=== PATIENT | female | born 1965 | race Caucasian/White ===

== ENCOUNTER 2018-10-18 12:35 | Inpatient (IN) | payer MEDICAID ==
[~2018-10-18] VITALS: Ht 152.4 cm; Wt 103.0 kg
[~2018-10-18 12:35] MED LIST: HYDR12.5 PO; METO50TA PO; OMEP20TC12 PO
[2018-10-18 12:43] VITALS: BP 146/108
--- NOTE | 2018-10-18 13:03 | NUR ---
BARB EMT AT BEDSIDE FOR EKG
--- NOTE | 2018-10-18 13:17 | NUR ---
53 Y FEMALE BIB FAMILY C/O CHEST HEAVYNESS, LT ARM NUMBNESS, L SIDED FACIAL NUMBNESS, WEAKNESS AND DIZZYNESS SINCE LAST NIGHT. DENIES PAIN AT THIS TIME. DENIES BLURRY VISION. -N/V OR FEVER. PT ALERT AND AWAKE. VSS AT THIS TIME. BED IS DOWN, LOCKED, BED RAIL X 1, ERMD TO SEE PT. MEDHX:HTN RX:ASPIRIN, MOTOPROLOL, HYDROCHLOROTHIAZIDE
--- NOTE | 2018-10-18 13:55 | NUR ---
dr bateman at bedside for pt evaluation
[2018-10-18] MEDS ORDERED: KETOROLAC 30 MG/ML VIAL IVP ONE (14:00)
[2018-10-18] MEDS ORDERED: ASPIRIN 81 MG TAB.CHEW PO ONE (14:00)
[2018-10-18 14:17] LABS: BASOPHILS % (AUTO) 0.4 % (0.0-2.0); EOSINOPHILS # (AUTO) 0.1 K/uL (0-0.4); EOSINOPHILS % (AUTO) 0.8 % (0.0-4.0); HEMATOCRIT 41.3 % (36-48); HEMOGLOBIN 14.1 g/dL (12.0-16.0); LYMPHOCYTES # (AUTO) 2.7 K/uL (2.5-16.5); LYMPHOCYTES % (AUTO) 32.5 % (20.5-51.1); MEAN CORPUSCULAR HEMOGLOBIN 31 pg (27-31); MEAN CORPUSCULAR HGB CONC 34 g/dL (33-37); MEAN CORPUSCULAR VOLUME 91.4 fL (80-94); MONOCYTES # (AUTO) 0.5 K/uL (0.8-1.0); MONOCYTES % (AUTO) 6.1 % (1.7-9.3); NEUTROPHILS # (AUTO) 5.1 K/uL (1.8-7.7); NEUTROPHILS % (AUTO) 60.2 % (42.2-75.2); PLATELET COUNT (AUTO) 249 K/uL (140-450); RED BLOOD CELL COUNT(AUTO) 4.52 MIL/uL (4.20-5.40); RED CELL DISTRIBUTION WIDTH 12.8 % (11.6-13.7); WHITE BLOOD COUNT (AUTO) 8.4 K/uL (4.8-10.8)
--- NOTE | 2018-10-18 14:23 | NUR ---
ASPIRIN NON ADMINISTERED, STATES SHE TOOK ASPIRIN BEFORE COMING INTO ER
--- NOTE | 2018-10-18 14:36 | NUR ---
PAIN 0/10. AFTER TORADOL ADMINISTERED
[2018-10-18 14:37] LABS: PROTHROMBIN TIME 9.6 secs (10.8-13.4)
[2018-10-18 14:38] LABS: ALBUMIN 3.6 g/dL (3.4-5.0); ANION GAP 10.8 (8-16); CREATININE 0.8 mg/dL (0.6-1.3); POTASSIUM 3.8 mmol/L (3.5-5.1); TOTAL BILIRUBIN 0.5 mg/dL (0.0-1.0)
[2018-10-18 15:03] LABS: D-DIMER < 100 ng/ml (0-400)
--- NOTE | 2018-10-18 15:34 | NUR ---
VSS AT THIS TIME, PT [id number]. PT SITTING IN BED.
[2018-10-18] MEDS ORDERED: DOCUSATE SODIUM 100 MG GELCAP PO PRN (16:00)
[2018-10-18] MEDS ORDERED: ONDANSETRON 4 MG/2 ML VIAL IM/IVP PRN (16:00)
[2018-10-18] MEDS ORDERED: ACETAMINOPHEN 325 MG TAB PO PRN (16:00)
[2018-10-18] MEDS ORDERED: NITROGLYCERIN 0.4 MG TAB SL ONE (16:10)
[2018-10-18] MEDS ORDERED: NITROGLYCERIN 0.4 MG TAB SL PRN (16:20)
[2018-10-18 16:30] VITALS: BP 150/99
--- NOTE | 2018-10-18 16:30 | NUR ---
RECEIVED PT FROM ER NURSE, RAMAKRISHNA, VIA CHELO, PT IS AWAKE, ALERT AND ORIENTED, SURINAMESE SPEAKING AND AMBULATES. PT HAS AN IV LINE ON THE RT AC G. 20 ON SALINE LOCK. PT DENIES SOB AND VERBALIZED A PAIN RATE OF 3/10, TOLERABLE. NO OTHER UNTOWARD SYMPTOM NOTED. WILL CONTINUE TO MONITOR PT.
--- NOTE | 2018-10-18 16:30 | NUR ---
Patient will be admitted to care of [facility]. Admited to tele. Will go to room 125b. Belongings list completed. Report to lizette whiting.
[2018-10-18 16:33] LABS: CHOL/HDL RATIO 4.7 (1-4.5); PHOSPHORUS 2.8 mg/dL (2.5-4.9); THYROID STIMULATING HORMONE 2.26 uIU/mL (0.34-3.74)
[2018-10-18] MEDS ORDERED: ASPI-1718 PO (16:41)
[2018-10-18] MEDS: NACL 0.9% 1,000 ML IV SCH (17:00)
--- NOTE | 2018-10-18 17:00 | NUR ---
PT WAS STARTED ON IVF OF NS AT 100ML/HR.
[2018-10-18] MEDS ORDERED: METOPROLOL 50 MG TAB PO SCH (17:11)
--- NOTE | 2018-10-18 17:32 | NUR ---
PT IS AWAKE AND LYING ON THE BED, VITAL SIGNS TAKEN, BP IS 140/88, PULSE IS 66 O2 SATURATION IS 97%, RESPIRATION IS 18/MIN, ORAL MEDICATION WAS GIVEN AND PT TOLERATED IT. NO SIGN OF DISTRESS NOTED. WILL MONITOR PT.
--- NOTE | 2018-10-18 18:10 | NUR ---
PT IS OFF THE UNIT FOR A CT OF HEAD WITHOUT CONTRAST.
--- NOTE | 2018-10-18 18:21 | NUR ---
PT IS BACK TO ROOM NOW FROM CT OF HEAD WITHOUT CONTRAST, FAMILY ON THE BEDSIDE, ASSISTED WITH DINNER TRAY.
--- NOTE | 2018-10-18 19:10 | NUR ---
ENDORSED PT TO NUCLEAR OPERATIONS SPECIALIST NURSELEVAR FOR CONTINUITY OF CARE. PT IS STABLE AT THIS TIME WITH FAMILY ON THE BEDSIDE.
--- NOTE | 2018-10-18 19:17 | NUR ---
RECEIVED BEDSIDE REPORT FROM DAY SHIFT RN. PATIENT STABLE WITH NO SIGNS OF DISTRESS, SAFETY PRECAUTIONS IN PLACE, FAMILY AT BEDSIDE.
[2018-10-18 20:00] VITALS: BP 115/67
--- NOTE | 2018-10-18 20:59 | NUR ---
ADMINISTERED SCHEDULED MEDICATIONS, NO C/O PAIN AT THIS TIME, NO SIGNS OF DISTRESS ON RA. WILL CONTINUE TO MONITOR.
--- NOTE | 2018-10-18 23:00 | NUR ---
PATIENT SLEEPING IN BED, NO SIGNS OF DISTRESS ON RA. SAFETY PRECAUTIONS IN PLACE.
[2018-10-19] VITALS: BP 127/78
--- NOTE | 2018-10-19 00:45 | NUR ---
VITAL SIGNS STABLE, NO C/O PAIN, NO SIGNS OF DISTRESS ON RA.
--- NOTE | 2018-10-19 02:24 | NUR ---
PATIENT SLEEPING, NO SIGNS OF DISTRESS ON RA, WILL CONTINUE TO MONITOR.
[2018-10-19 04:00] VITALS: BP_SYST 133; BP_SYST 135; BP_DIAS 81; BP_DIAS 88
[2018-10-19] MEDS: NACL 0.9% 1,000 ML IV SCH ×3 (04:12→23:45)
--- NOTE | 2018-10-19 04:30 | NUR ---
PATIENT SLEEPING VITAL SIGNS STABLE. NO SIGNS OF DISTRESS ON RA.
--- NOTE | 2018-10-19 06:18 | NUR ---
PATIENT SLEEPING, NO SIGNS OF DISTRESS ON RA, SAFETY PRECAUTIONS IN PLACE.
--- NOTE | 2018-10-19 07:32 | NUR ---
ENDORSED PATIENT TO DAY SHIFT RN IN STABLE CONDITION.
--- NOTE | 2018-10-19 07:33 | NUR ---
Received bedside report from pm nurse Bridgette. Pt asleep in bed, respirations even & nonlabored, FLACC 0. Right AC IV intact with ongoing NS @ 100ml/hr. Call light within reach.
[2018-10-19 08:00] VITALS: BP 138/83
[2018-10-19] MEDS: ASPIRIN 81 MG TAB.CHEW PO SCH (08:09)
[2018-10-19] MEDS: ATORVASTATIN 20 MG TAB PO SCH (08:10)
[2018-10-19] MEDS: METOPROLOL 50 MG TAB PO SCH (08:11)
[2018-10-19] MEDS: HYDROCHLOROTHIAZIDE 25 MG TAB PO SCH (08:12)
--- NOTE | 2018-10-19 08:30 | NUR ---
Pt sitting up in bed, eating breakfast. No c/o pain. Cont to have slight numbness to left side of face, no facial droop, able to smile symmetrically, no lingual deviation. Pt denies any chest pain or left arm numbness at this time. Call light within reach. Will cont to monitor.
--- NOTE | 2018-10-19 08:39 | NUR ---
PATIENT HAS BEEN SCREENED AND CATEGORIZED HIGH NUTRITION RISK. PATIENT WILL BE SEEN WITHIN 1-2 DAYS OF ADMISSION. 10/19/18-10/20/[address]
[2018-10-19 09:19] LABS: BASOPHILS % (AUTO) 0.4 % (0.0-2.0); EOSINOPHILS # (AUTO) 0.1 K/uL (0-0.4); EOSINOPHILS % (AUTO) 1.1 % (0.0-4.0); HEMATOCRIT 41.2 % (36-48); HEMOGLOBIN 14.2 g/dL (12.0-16.0); LYMPHOCYTES # (AUTO) 2.2 K/uL (2.5-16.5); LYMPHOCYTES % (AUTO) 29.9 % (20.5-51.1); MEAN CORPUSCULAR HEMOGLOBIN 32 pg (27-31); MEAN CORPUSCULAR HGB CONC 35 g/dL (33-37); MEAN CORPUSCULAR VOLUME 91.6 fL (80-94); MONOCYTES # (AUTO) 0.5 K/uL (0.8-1.0); MONOCYTES % (AUTO) 6.2 % (1.7-9.3); NEUTROPHILS # (AUTO) 4.6 K/uL (1.8-7.7); NEUTROPHILS % (AUTO) 62.4 % (42.2-75.2); PLATELET COUNT (AUTO) 231 K/uL (140-450); RED BLOOD CELL COUNT(AUTO) 4.49 MIL/uL (4.20-5.40); RED CELL DISTRIBUTION WIDTH 12.6 % (11.6-13.7); WHITE BLOOD COUNT (AUTO) 7.3 K/uL (4.8-10.8)
[2018-10-19 09:41] LABS: ANION GAP 11.5 (8-16); CARBON DIOXIDE 25.5 mmol/L (21-32); CREATININE 0.7 mg/dL (0.6-1.3)
[2018-10-19 12:00] VITALS: BP 122/75
--- NOTE | 2018-10-19 13:58 | NUR ---
10/19/18 RD INITIAL ASSESSMENT COMPLETED PLEASE REFER TO NUTRITION ASSESSMENT UNDER CARE ACTIVITY FOR ESTIMATED NUTRITIONAL NEEDS. RD RECOMMENDATIONS: 1. CONTINUE CARDIAC DIET TOLERATED. 2. PT DECLINED VERBAL NUTRITION EDUCATION ON CARDIAC DIET, HOWEVER ACCEPTED LOW NA DIET EDUCATION HANDOUT. 3. RD WILL F/U 7 DAYS; LOW RISK. PINEDA MATA, LOREN
--- NOTE | 2018-10-19 14:10 | NUR ---
Pt amb back to bed from toilet room. Pt with steady gait, AAOx4. No c/o pain/discomfort. Right AC IV intact with ongoing NS @ 100ml/hr. Call light within reach.
[2018-10-19 16:00] VITALS: BP 115/68
--- NOTE | 2018-10-19 18:13 | NUR ---
Pt sitting up in bed eating dinner. No c/o discomfort, no signs of distress. Call light within reach. Right AC IV intact with ongoing NS @ 100ml/hr.
--- NOTE | 2018-10-19 19:20 | NUR ---
Report given to pm nurse Bridgette. Pt in bed, awake, no signs of distress. Right AC IV intact with ongoing NS @ 100ml/hr. Call light within reach.
--- NOTE | 2018-10-19 19:21 | NUR ---
RECEIVED BEDSIDE REPORT FROM DAY SHIFT RNWILLIAM. PATIENT IS STABLE WITH NO SIGNS OF DISTRESS ON RA. NO C/O PAIN. SAFETY PRECAUTIONS IN PLACE.
[2018-10-19 20:00] VITALS: BP 127/76
--- NOTE | 2018-10-19 20:34 | NUR ---
ADMINISTERED SCHEDULED MEDICATION, PATIENT TOLERATED WELL. PATIENT RESTING IN BED, NO SIGNS OF DISTRESS OR C/O PAIN.
--- NOTE | 2018-10-19 22:15 | NUR ---
PATIENT RESTING IN BED, NO C/O PAIN OR DISCOMFORT. EDUCATE PATIENT ON NEED FOR URINE SAMPLE. PATIENT AGREED TO CALL ME WHEN THE NEED TO VOID ARISES.
[2018-10-19 23:02] LABS: APPEARANCE,URINE CLEAR (CLEAR); BILIRUBIN,URINE NEGATIVE (NEGATIVE); BLOOD, URINE NEGATIVE (NEGATIVE); COLOR,URINE YELLOW (YELLOW); LEUKOCYTE ESTERASE ,URINE NEGATIVE (NEGATIVE); NITRITE, URINE NEGATIVE (NEGATIVE); PH,URINE 6.5 (5.0-9.0); UGLUCOSE NEGATIVE (NEGATIVE)
[2018-10-19 23:09] LABS: BARBITURATE, URINE NEG. ng/ml (NEG <=200); BENZODIAZEPINE, URINE NEG. ng/mL (NEG <=200); CANNABINOID, URINE NEG. ng/mL (NEG <=50); COCAINE, URINE NEG. ng/mL (NEG <=300); OPIATE, URINE NEG. ng/mL (NEG <=2000); PHENCYCLIDINE SCREEN,URINE NEG. ng/mL (NEG <=25)
[2018-10-20 00:22] VITALS: BP 143/84
--- NOTE | 2018-10-20 00:33 | NUR ---
PATIENT SLEEPING, VITALS STABLE, NO SIGNS OF DISTRESS ON RA. SAFETY PRECAUTIONS IN PLACE.
--- NOTE | 2018-10-20 02:03 | NUR ---
PATIENT IS SLEEPING. NO SIGNS OF DISTRESS ON RA. SAFETY PRECAUTIONS IN PLACE.
[2018-10-20 04:00] VITALS: BP 147/75
--- NOTE | 2018-10-20 04:10 | NUR ---
PATIENT SLEEPING, VITALS STABLE, NO SIGNS OF DISTRESS ON RA.
[2018-10-20 06:30] LABS: BASOPHILS % (AUTO) 0.4 % (0.0-2.0); EOSINOPHILS # (AUTO) 0.1 K/uL (0-0.4); EOSINOPHILS % (AUTO) 1.1 % (0.0-4.0); HEMATOCRIT 38.6 % (36-48); HEMOGLOBIN 13.4 g/dL (12.0-16.0); LYMPHOCYTES # (AUTO) 3.1 K/uL (2.5-16.5); LYMPHOCYTES % (AUTO) 34.1 % (20.5-51.1); MEAN CORPUSCULAR HEMOGLOBIN 32 pg (27-31); MEAN CORPUSCULAR HGB CONC 35 g/dL (33-37); MEAN CORPUSCULAR VOLUME 91.6 fL (80-94); MONOCYTES # (AUTO) 0.6 K/uL (0.8-1.0); MONOCYTES % (AUTO) 6.5 % (1.7-9.3); NEUTROPHILS # (AUTO) 5.3 K/uL (1.8-7.7); NEUTROPHILS % (AUTO) 57.9 % (42.2-75.2); PLATELET COUNT (AUTO) 228 K/uL (140-450); RED BLOOD CELL COUNT(AUTO) 4.21 MIL/uL (4.20-5.40); RED CELL DISTRIBUTION WIDTH 12.7 % (11.6-13.7); WHITE BLOOD COUNT (AUTO) 9.2 K/uL (4.8-10.8)
[2018-10-20 06:31] LABS: ANION GAP 9.6 (8-16); CARBON DIOXIDE 29.2 mmol/L (21-32); CREATININE 0.8 mg/dL (0.6-1.3); POTASSIUM 3.8 mmol/L (3.5-5.1)
[2018-10-20 06:36] LABS: MAGNESIUM 1.8 mg/dL (1.8-2.4); PHOSPHORUS 2.9 mg/dL (2.5-4.9)
--- NOTE | 2018-10-20 06:43 | NUR ---
PATIENT SLEEPING, WILL ENDORSE TO DAY SHIFT IN STABLE CONDITION.
--- NOTE | 2018-10-20 07:20 | NUR ---
RECEIVED BEDSIDE SHIFT REPORT FROM NURSE. PT CURRENTLY RESTING IN BED WITH NO OBVIOUS SIGNS OF DISTRESS WITH BREATHING EQUAL AND UNLABORED. AOX4, WITH NO COMPLAINTS OR REQUESTS AT THIS TIME. PT CURRENTLY HAS A RIGHT AC IV PATENT AND ASYMPTOMATIC INFUSING NS@100ML/HR. ALL SAFETY MEASURES IN PLACE AND CALL LIGHT WITHIN REACH. PT DENIES ANY NUMBNESS TO FACE.
[2018-10-20 08:00] VITALS: BP 140/81
[2018-10-20] MEDS: ASPIRIN 81 MG TAB.CHEW PO SCH (08:18)
[2018-10-20] MEDS: ATORVASTATIN 20 MG TAB PO SCH (08:18)
[2018-10-20] MEDS: METOPROLOL 50 MG TAB PO SCH (08:18)
--- NOTE | 2018-10-20 08:30 | NUR ---
ADMINISTERED MEDICATIONS, PT TOLERATED WELL. REVIEWED INDICATION AND SIDE EFFECTS. PT HAS NO OBVIOUS SIGNS OF DISTRESS, BREATHING SYMMETRICAL AND UNLABORED.
[2018-10-20] MEDS: HYDROCHLOROTHIAZIDE 25 MG TAB PO SCH (08:40)
--- NOTE | 2018-10-20 09:35 | NUR ---
PROVIDED WRITTEN AND VERBAL DISCHARGE INFORMATION. PT IS GOING TO PHONE DAUGHTER FOR TRANSPORTATION HOME. IV REMOVED WITH TIP OF CATHETER INTACT. PT IS FREE OF OBVIOUS SIGNS OF DISTRESS AND HAS NO QUESTIONS AT THIS TIME. ALL PERSONAL BELONGINGS GIVEN INCLUDING MEDICATIONS FROM PHARMACY.
--- NOTE | 2018-10-20 10:21 | NUR ---
PT DISCHARGED WITH TRANSPORTATION FROM DAUGHTER. PT REQUEST TO AMBULATE AND REFUSE WHEELCHAIR. PT NAMEBANDS REMOVED AND PROPERLY DISPOSED OF. PT HAS ALL BELONGINGS AND DISCHARGE PAPERWORK WITH HER AT TIME OF DEPARTURE.
== END 2018-10-20 10:21 | disposition home or self-care (01) | DRG 48 ==
LOC: MED 12:35 → MMU 15:49
PROVIDERS: ADMIT General Practice; ATTEND General Practice
DX: G90.9 Disorder of the autonomic nervous system, unspecified (principal); E83.39 Other disorders of phosphorus metabolism; K21.9 Gastro-esophageal reflux disease without esophagitis; M94.0 Chondrocostal junction syndrome [Tietze]; I10 Essential (primary) hypertension; E66.9 Obesity, unspecified; E78.5 Hyperlipidemia, unspecified; Z88.5 Allergy status to narcotic agent; Z68.41 Body mass index [BMI] 40.0-44.9, adult; Z98.51 Tubal ligation status
CPT/HCPCS: 36415; 70450; 71045; 80048; 80053; 80305; 81003; 81025; 82150; 83036; 83690; 83735; 83880; 84100; 84436; 84443; 84479; 84484; 85025; 85379; 85610; 85730; 87081; 93005; 93880; 96374; 99285; J1644; J1885; J7030; Q0092